=== PATIENT | male | born 2000 | race African-American/Black ===

== ENCOUNTER 2020-04-30 09:57 | Emergency (ER) | payer MEDICAID ==
[~2020-04-30] VITALS: Ht 182.9 cm; Wt 81.6 kg
[2020-04-30 10:15] VITALS: Ht 182.9 cm; Wt 81.6 kg
[2020-04-30 12:21] VITALS: BP 121/66
== END 2020-04-30 12:21 | disposition home or self-care (01) ==
LOC: ED 09:57
DX: M79.604 Pain in right leg (principal); Z76.0 Encounter for issue of repeat prescription; W34.09XA Accidental discharge from other specified firearms, initial encounter; Y93.89 Activity, other specified; Y92.89 Other specified places as the place of occurrence of the external cause; Y99.8 Other external cause status
CPT/HCPCS: J3010